=== PATIENT | male | born 1940 | race Caucasian/White ===

== ENCOUNTER → 2018-02-08 07:06 | Outpatient (CLI) | payer MEDICARE, OTHER, SELFPAY ==
[2018-02-08 07:26] LABS: Absolute Neutrophil Count 4.4 X10^3/uL (2.0-7.7); Basophil# 0.04 X10^3/uL; Basophil% 0.6 % (0-1); Eosinophils% 5.5 % (0-5); Hematocrit 45.5 % (40-54); Hemoglobin 14.7 g/dl (13.0-16.5); Mean Corp Hgb Conc 32.3 g/gl (32-36); Mean Corpuscular Hgb 31.3 pg (27.0-32.0); Mean Corpuscular Volume 96.8 fL (80-94); Mean Platelet Vol. 9.5 fl (6.2-12.0); Monocyte# 0.84 X10^3/uL; Monocyte% 11.6 % (0-10); Neutrophil # 4.36 X10^3/uL (2.7-7.7); Platelet Count 292 K/mm3 (150-450); RBC Distribution Width CV 13.7 % (11.6-14.6); RBC Distribution Width SD 47.3 fl (35.1-43.9); White Blood Count 7.3 K/mm3 (4.4-11.0)
[2018-02-08 07:28] LABS: POSITIVE COUNT NO; POSITIVE DIFFERENTIAL NO; POSITIVE MORPHOLOGY NO
[2018-02-08 08:02] LABS: ALB/GLOB Ratio 1.1 RATIO (0.9-2.4); AST(SGOT) 21 U/L (15-37); Alanine Aminotransfer ALT/SGPT 37 U/L (16-61); Albumin, Serum 3.9 g/dL (3.2-5.0); Alkaline Phosphatase 71 U/L (45-117); Anion Gap 7 (5-15); BUN 24 mg/dL (7-18); BUN/Creat Ratio 19.5 RATIO (10-20); Calcium,Total 9.4 mg/dL (8.5-10.1); Chloride 105 mmol/L (98-107); Cholesterol 139 mg/dL (200); Creatinine, Serum 1.23 mg/dL (0.70-1.30); EST Glomerular Filtration Rate 60 mL/min (>60); Est Glom Filt Rate - Afr Amer 73 mL/min (>60); Ferritin 156 ng/mL (26-388); Globulin 3.4 g/dL (2.2-4.2); Glucose 87 mg/dL (74-106); High Density Lipoprotein 52 mg/dL; PSA,Total- Diagnostic 4.49 ng/mL (0.0-4.0); Potassium 4.4 mmol/L (3.5-5.1); Protein, Total 7.3 g/dL (6.4-8.2); Sodium Level 145 mmol/L (136-145); Thyroid Stim Hormone (TSH) 6.02 uIU/mL (0.358-3.74); Triglycerides 91 mg/dL; Very Low Density Lipoprotein 18 mg/dL (5-40)
[2018-02-10 09:50] LABS: Vitamin B12 579 pg/mL (211-911); Vitamin D,25 Hydroxy 56.7 ng/mL (29.95-100.01)
== END ==
PROVIDERS: Family Provider Family Medicine; PCP Family Medicine; Visit Provider Family Medicine
DX: E78.00 Pure hypercholesterolemia, unspecified (principal); D53.1 Other megaloblastic anemias, not elsewhere classified; G62.9 Polyneuropathy, unspecified; N40.0 Benign prostatic hyperplasia without lower urinary tract symptoms
CPT/HCPCS: 80053; 80061; 82306; 82607; 82728; 82746; 84153; 84443; 85025

== ENCOUNTER → 2018-03-20 09:48 | Outpatient (CLI) | payer MEDICARE, OTHER, SELFPAY ==
[2018-03-20 12:02] LABS: PSA,Total- Diagnostic 4.66 ng/mL (0.0-4.0)
== END ==
PROVIDERS: Family Provider Family Medicine; PCP Family Medicine; Visit Provider Urology
DX: R97.20 Elevated prostate specific antigen [PSA] (principal)
CPT/HCPCS: 36415; 84153

== ENCOUNTER → 2018-04-10 08:18 | Outpatient (CLI) | payer MEDICARE, OTHER, SELFPAY ==
[2018-04-10 09:02] LABS: T4 Free Direct 0.73 ng/dL (0.76-1.46); Thyroid Stim Hormone (TSH) 2.99 uIU/mL (0.358-3.74)
== END ==
PROVIDERS: Family Provider Family Medicine; PCP Family Medicine; Visit Provider Family Medicine
DX: R94.6 Abnormal results of thyroid function studies (principal)
CPT/HCPCS: 36415; 84439; 84443

== ENCOUNTER → 2018-04-21 10:40 | Outpatient (CLI) | payer MEDICARE, OTHER, SELFPAY ==
--- NOTE | 2018-04-21 10:40 | DT_ITS ---
This patient was seen during an EMR downtime April 21, 2018 - April 28, 2018. This patient may have a combination of paper and electronic documentation or all paper documentation. All documentation is viewable within the e-chart portion of [facility] for each patient visit.
== END ==
PROVIDERS: Family Provider Family Medicine; PCP Family Medicine; Visit Provider Physician Assistant Surgical
DX: J02.9 Acute pharyngitis, unspecified (principal)
CPT/HCPCS: 87880

== ENCOUNTER → 2018-08-13 08:58 | Outpatient (CLI) | payer MEDICARE, OTHER, SELFPAY ==
--- NOTE | 2018-08-13 09:33 | CDU_ITS ---
Reason For Study: RETINAL VEIN OCCLUSION Rt. Velocities/BP Lt. Velocities/BP Prox CCA 126/28 cm/sec. Prox CCA 90/19 cm/sec. Mid CCA 96/21 cm/sec. Mid CCA 103/26 cm/sec. Dist CCA 79/22 cm/sec. Dist CCA 84/18 cm/sec. Prox ICA 55/16 cm/sec. Prox ICA 49/21 cm/sec. Mid ICA 42/15 cm/sec. Mid ICA 103/38 cm/sec. Dist ICA 89/31 cm/sec. Dist ICA 80/21 cm/sec. Rt. ICA/CCA = .92. Lt. ICA/CCA = 1.0. Prox ECA 69/9 cm/sec. Prox ECA 63/12 cm/sec. Rt. Vert. 43/17 cm/sec. Lt. Vert. 35/12 cm/sec. Right Extracranial There is homogeneous, smooth atherosclerotic plaque noted in the right common carotid artery. There is homogeneous, smooth atherosclerotic plaque noted in the right internal carotid artery. There is intimal thickening but no significant atherosclerotic plaque noted in the right external carotid artery. Antegrade flow is noted in the right vertebral artery. Left Extracranial There is homogeneous, smooth atherosclerotic plaque noted in the left common carotid artery. There is homogeneous, smooth atherosclerotic plaque noted in the left internal carotid artery. There is intimal thickening but no significant atherosclerotic plaque noted in the left external carotid artery. Antegrade flow is noted in the left vertebral artery. Procedure Carotid Duplex 11033. Exam performed in department. Interpretation Summary Mild (<50%) stenosis right extracranial internal carotid. Mild (<50%) stenosis left extracranial internal carotid. Flow within the vertebral arteries is antegrade bilaterally. Ordering Physician: Miquel Miller Referring Physician: Miquel Miller Performed By: Jackelin Simon, NINA, RVT
[2018-08-13 09:57] LABS: Cholesterol 146 mg/dL (200); High Density Lipoprotein 58 mg/dL; PSA,Total - Annual Screen 2.58 ng/mL (0.00-4.00); T4 Free Direct 0.87 ng/dL (0.76-1.46); Thyroid Stim Hormone (TSH) 2.51 uIU/mL (0.358-3.74); Triglycerides 119 mg/dL; Very Low Density Lipoprotein 24 mg/dL (5-40)
== END ==
PROVIDERS: Family Provider Family Medicine; PCP Family Medicine; Referring Provider Family Medicine; Visit Provider Family Medicine
DX: E78.00 Pure hypercholesterolemia, unspecified (principal); R79.89 Other specified abnormal findings of blood chemistry; N40.0 Benign prostatic hyperplasia without lower urinary tract symptoms; H34.8312 Tributary (branch) retinal vein occlusion, right eye, stable; H34.8392 Tributary (branch) retinal vein occlusion, unspecified eye, stable; Z12.5 Encounter for screening for malignant neoplasm of prostate
CPT/HCPCS: 36415; 80061; 84153; 84439; 84443; 93880; G0103

== ENCOUNTER → 2018-09-24 08:00 | Outpatient (CLI) | payer MEDICARE, OTHER, SELFPAY ==
[2018-09-24 08:21] LABS: Absolute Lymphocyte Count 1.68 X10^3/ul (0.83-4.51); Absolute Neutrophil Count 4.7 X10^3/uL (2.0-7.7); Basophil# 0.06 X10^3/uL; Basophil% 0.8 % (0-1); Eosinophil# 0.45 X10^3/uL; Eosinophils% 5.8 % (0-5); Hematocrit 42.5 % (40-54); Hemoglobin 13.5 g/dl (13.0-16.5); Lymphocyte # 1.68 X10^3/ul (4.0); Lymphocyte % 21.6 % (19-41); Mean Corp Hgb Conc 31.8 g/gl (32-36); Mean Corpuscular Hgb 30.8 pg (27.0-32.0); Mean Corpuscular Volume 96.8 fL (80-94); Mean Platelet Vol. 9.4 fl (6.2-12.0); Monocyte# 0.91 X10^3/uL; Monocyte% 11.7 % (0-10); Neutrophil # 4.66 X10^3/uL (2.7-7.7); Neutrophil % 59.8 % (47-70); Platelet Count 321 K/mm3 (150-450); RBC Distribution Width CV 13.5 % (11.6-14.6); RBC Distribution Width SD 46.8 fl (35.1-43.9); Red Blood Count 4.39 M/mm3 (4.6-6.2); White Blood Count 7.8 K/mm3 (4.4-11.0)
[2018-09-24 08:32] LABS: POSITIVE COUNT NO; POSITIVE DIFFERENTIAL NO; POSITIVE MORPHOLOGY NO
[2018-09-24 09:03] LABS: Vitamin B12 385 pg/mL (211-911)
== END ==
PROVIDERS: Family Provider Family Medicine; PCP Family Medicine; Referring Provider Family Medicine; Visit Provider Family Medicine
DX: D53.1 Other megaloblastic anemias, not elsewhere classified (principal)
CPT/HCPCS: 36415; 82607; 82746; 85025

== ENCOUNTER → 2018-11-27 12:19 | Outpatient (CLI) | payer MEDICARE, OTHER, SELFPAY ==
[2018-11-27 12:48] LABS: Absolute Lymphocyte Count 1.34 X10^3/ul (0.83-4.51); Absolute Neutrophil Count 4.9 X10^3/uL (2.0-7.7); Basophil# 0.02 X10^3/uL; Basophil% 0.3 % (0-1); Eosinophil# 0.09 X10^3/uL; Eosinophils% 1.3 % (0-5); Hematocrit 46.1 % (40-54); Hemoglobin 14.4 g/dl (13.0-16.5); Lymphocyte # 1.34 X10^3/ul (4.0); Lymphocyte % 18.9 % (19-41); Mean Corp Hgb Conc 31.2 g/gl (32-36); Mean Corpuscular Hgb 30.2 pg (27.0-32.0); Mean Corpuscular Volume 96.6 fL (80-94); Mean Platelet Vol. 9.2 fl (6.2-12.0); Monocyte# 0.78 X10^3/uL; Neutrophil # 4.85 X10^3/uL (2.7-7.7); Neutrophil % 68.4 % (47-70); Platelet Count 270 K/mm3 (150-450); RBC Distribution Width CV 14.3 % (11.6-14.6); RBC Distribution Width SD 50.5 fl (35.1-43.9); Red Blood Count 4.77 M/mm3 (4.6-6.2); White Blood Count 7.1 K/mm3 (4.4-11.0)
[2018-11-27 12:53] LABS: POSITIVE COUNT NO; POSITIVE DIFFERENTIAL NO; POSITIVE MORPHOLOGY NO
[2018-11-27 13:17] LABS: Erythrocyte Sedimentation Rate < 1 mm/hr (0-20)
[2018-11-27 13:20] LABS: BUN 26 mg/dL (7-18); Creatinine, Serum 1.18 mg/dL (0.70-1.30); EST Glomerular Filtration Rate 63 mL/min (>60); Glucose 92 mg/dL (74-106)
[2018-11-27 13:21] LABS: ALB/GLOB Ratio 1.3 RATIO (0.9-2.4); AST(SGOT) 23 U/L (15-37); Alanine Aminotransfer ALT/SGPT 40 U/L (16-61); Albumin, Serum 4.2 g/dL (3.2-5.0); Alkaline Phosphatase 69 U/L (45-117); Anion Gap 10 (5-15); CRP < 2.90 mg/L (0.0-3.0); Calcium,Total 8.9 mg/dL (8.5-10.1); Chloride 102 mmol/L (98-107); Est Glom Filt Rate - Afr Amer 77 mL/min (>60); Globulin 3.2 g/dL (2.2-4.2); Potassium 4.4 mmol/L (3.5-5.1); Protein, Total 7.4 g/dL (6.4-8.2); Sodium Level 142 mmol/L (136-145)
== END ==
PROVIDERS: Family Provider Family Medicine; PCP Family Medicine; Referring Provider Family Medicine; Visit Provider Family Medicine
DX: K57.32 Diverticulitis of large intestine without perforation or abscess without bleeding (principal)
CPT/HCPCS: 36415; 80053; 85025; 85652; 86140; 87506

== ENCOUNTER → 2018-12-10 12:08 | Outpatient (CLI) | payer MEDICARE, OTHER, SELFPAY ==
[2018-12-10 13:16] LABS: ALB/GLOB Ratio 1.3 RATIO (0.9-2.4); AST(SGOT) 20 U/L (15-37); Alanine Aminotransfer ALT/SGPT 36 U/L (16-61); Albumin, Serum 4.1 g/dL (3.2-5.0); Alkaline Phosphatase 63 U/L (45-117); Anion Gap 9 (5-15); BUN 21 mg/dL (7-18); BUN/Creat Ratio 19.3 RATIO (10-20); CRP < 2.90 mg/L (0.0-3.0); Chloride 106 mmol/L (98-107); Creatinine, Serum 1.09 mg/dL (0.70-1.30); EST Glomerular Filtration Rate 69 mL/min (>60); Est Glom Filt Rate - Afr Amer 84 mL/min (>60); Globulin 3.1 g/dL (2.2-4.2); Glucose 90 mg/dL (74-106); Lipase 212 U/L (73-393); Protein, Total 7.2 g/dL (6.4-8.2); Sodium Level 142 mmol/L (136-145)
--- OUTSIDE RECORDS SUMMARY | 2019-02-11 10:29 | XMS RPT_ITS ---
:1940 Author Organization OHIP Support Name Relationship Address Phone KEVINRITA AvilesBIE Unavailable [address] + [place] [address] R Unavailable Unavailable Unavailable KEVIN, RAFI Unavailable [address] + [place] [address] R Unavailable Unavailable Unavailable KEVIN, RAFI Unavailable [address] + [place] [address] R Unavailable Unavailable Unavailable KEVIN, RAFI Unavailable [address] + [place] [address] R Unavailable Unavailable Unavailable KEVIN, RAFI Unavailable [address] + [place] [address] R Unavailable Unavailable Unavailable KEVIN, RAFI Unavailable [address] + [place] [address] R Unavailable Unavailable Unavailable KEVIN, RAFI Unavailable [address] + [place] [address] R Unavailable Unavailable Unavailable KEVIN, RAFI Unavailable [address] + [place] [address] R Unavailable Unavailable Unavailable KEVIN, RAFI Unavailable [address] + [place] [address] R Unavailable Unavailable Unavailable KEVIN, RAFI Unavailable [address] [phone] [place] [address] R Unavailable Unavailable Unavailable KEVIN, RAFI Unavailable [address] [phone] [place] [address] R Unavailable Unavailable Unavailable RAFI POWERS Unavailable [address] [facility] [phone] [place] [address] R Unavailable Unavailable Unavailable Care Team Providers Name Role Phone Miller, Miquel Attending Unavailable Miller, Miquel Referring Unavailable Miller, Miquel Primary Care Unavailable Miller, Miquel Attending Unavailable Miller, Miquel Referring Unavailable Miller, Miquel Primary Care Unavailable Miller, Miquel Attending Unavailable Miller, Miquel Primary Care Unavailable OsorioGustavo parsons Attending Unavailable OsorioGustavo parsons Referring Unavailable Miller, Miquel Primary Care Unavailable Miller, Miquel Attending Unavailable Miller, Miquel Referring Unavailable Miller, Miquel Primary Care Unavailable Miller, Miquel Attending Unavailable Miller, Miquel Referring Unavailable Miller, Miquel Primary Care Unavailable Ludin Beck Attending Unavailable Miller, Miquel Primary Care Unavailable Ludin Beck Attending Unavailable Miller, Miquel Referring Unavailable Miller, Miquel Primary Care Unavailable Buffy Dial Attending Unavailable Miller, Miquel Referring Unavailable Miller, Miquel Primary Care Unavailable Miller, Miquel Attending Unavailable Miller, Miquel Referring Unavailable Miller, Miquel Primary Care Unavailable Miller, Miquel Attending Unavailable Miller, Miquel Referring Unavailable Miller, Miquel Primary Care Unavailable Buffy Dial Attending Unavailable Miller, Miquel Referring Unavailable PROBLEMS PROBLEMS DATE TYPE CONDITION / CODE ATTENDING STATUS SOURCE 12/12/2018 Unknown R19.7 - Diarrhea, Miquel Miller Active [place] unspecified / Community R19.7(ICD-10) Hospital Repository 11/27/2018 Unknown K57.32 - Miquel Miller Active [place] Diverticulitis of [facility] large intestine Hospital without perforation Repository or abscess without bleeding / K57.32(ICD-10) 10/13/2018 Unknown M19.012 - Primary [place], Active [facility] oste[facility], [facility] shoulder / Hospital M19.012(ICD-10) Repository 09/24/2018 Unknown 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, 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 LAB L501.1000 7-18 mg/dL High BUN 21 LAB L501.1100 0.70-1.30 mg/dL Normal CREAT,SERUM 1.09 Result Comment: The validity of the calculated GFR AND GFRAA in patients over 70 years has not been determined. Clinical correlation is essential. LAB L501.1110 >60 mL/min Normal EST GFR 69 Result Comment: Non- GFR Calc LAB L501.1115 >60 mL/min Normal EST GFR - AA 84 Result Comment: GFR Calc LAB L501.1300 10-20 RATIO Normal BUN/CRE 19.3 LAB L501.1500 6.4-8.2 g/dL T Normal PROT 7.2 LAB L501.1800 3.2-5.0 g/dL Normal ALB 4.1 LAB L501.1950 2.2-4.2 g/dL Normal GLOB 3.1 LAB L501.2000 0.9-2.4 RATIO Normal A/G 1.3 LAB L501.2200 8.5-10.1 mg/dL CA Normal 9.0 LAB L501.4100 15-37 U/L Normal AST 20 LAB L501.4305 45-117 U/L Normal ALK P 63 LAB L501.4405 16-61 U/L Normal ALT 36 LAB L501.4600 0.20-1.00 mg/dL High T BILI 1.30 LAB L501.5300 136-145 mmol/L NA Normal 142 LAB L501.5600 3.5-5.1 mmol/L K Normal 4.0 LAB L501.5900 98-107 mmol/L CL Normal 106 LAB L501.6100 21.0-32.0 mmol/L Normal CO2 27.0 LAB L501.6200 5-15 Normal GAP 9 Performed By: #### L500.4050, L501.2450, L501.6710 #### [facility] [address] [place], [place], [address] LIPASE Collected: 12/10/2018 Status: F Source: [place] 12:13 PM [facility] REPOSITORY TYPE CODE TESTS RESULT OUT OF RANGE REFERENCE UNITS LAB L501.2450 73-393 U/L Normal LIPASE 212 Performed By: #### L500.4050, L501.2450, L501.6710 #### [facility] [address] [place], [place], [address] CRP Collected: 12/10/2018 Status: F Source: [place] 12:13 PM [facility] REPOSITORY TYPE CODE TESTS RESULT OUT OF RANGE REFERENCE UNITS LAB L501.6710 0.0-3.0 mg/L Normal < 2.90 C-REACTIVE PROT Result Comment: C-Reactive Protein (CRP) provides useful information for the diagnosis, therapy and monitoring of inflammatory processes and associated diseases. For the evaluation of Relative Risk for Cardiovascular Disease, a High Sensitivity CRP (HSCRP) should be ordered. Performed By: #### L500.4050, L501.2450, L501.6710 #### [facility] [address] [place], [place], [address] MISCELLANEOUS LAB Collected: 12/10/2018 Status: F Source: [place] PROCEDURE 12:13 PM [facility] REPOSITORY Order Comment: Test(s) Ordered: [id number] GIARD/CRYPTO STOOL TYPE CODE TESTS RESULT OUT OF RANGE REFERENCE UNITS LAB L801.1541 Normal [facility] TEST Result Comment: TEST RESULT UNITS REF INTERVAL GIARDIA/CRYPTOSPORIDIUM EIA Giardis lamblia Ag, EIA Neagative Negative Cryptosporidium EIA Negative Negative TESTING PERFORMED AT [facility]. ORIGINAL REPORT ON FILE IN LAB CONTAINS ADDITIONAL TEST SITE INFORMATION. Performed By: #### L801.1541 #### [facility] [address] [place], [address] Observed: 12/10/2018 Status: F Source: [place] OVA AND PARASITES 12:13 PM [facility] REPOSITORY O + P OVA AND PARASITES EXAM, ROUTINE These results were obtained using wet preparation(s) and trichrome stained smear. This test does not include testing for Crytosporidium parvum, Cyclospora, or Microsporidia. One negative specimen does not rule out the possibility of a parasitic infection. TESTING PERFORMED AT [facility]. ORIGINAL REPORT ON FILE IN LAB CONTAINS ADDITIONAL TEST SITE INFORMATION. Ova/Parasite Exam NO OVA, CYSTS, OR PARASITES FOUND. Performed By: #### M600.5000 #### [facility] [place], [address] CBC W/DIFF, AUTOMATED Collected: 11/27/2018 Status: F Source: [place] 12:26 PM [facility] REPOSITORY TYPE CODE TESTS RESULT OUT OF RANGE REFERENCE UNITS LAB L100.1000 4.4-11.0 K/mm3 Normal WBC 7.1 LAB L100.1200 4.6-6.2 M/mm3 Normal RBC 4.77 LAB L100.1300 13.0-16.5 g/dl Normal HGB 14.4 LAB L100.1400 40-54 % Normal HCT 46.1 LAB L100.1500 80-94 fL High MCV 96.6 LAB L100.1600 27.0-32.0 pg Normal MCH 30.2 LAB L100.1700 32-36 g/gl Low MCHC 31.2 LAB L100.1810 11.6-14.6 % Normal RDW CV 14.3 LAB L100.1820 35.1-43.9 fl High RDW SD 50.5 LAB L100.1900 150-450 K/mm3 Normal PLT 270 LAB L100.2000 6.2-12.0 fl Normal MPV 9.2 LAB L100.2100 47-70 % Normal NEUT% 68.4 LAB L100.2200 19-41 % Low LY% 18.9 LAB L100.2300 0-10 % High MONO% 11.0 LAB L100.2400 0-5 % Normal EO% 1.3 LAB L100.2500 0-1 % Normal BASO% 0.3 LAB L100.2550 0.0-0.9 % Normal IM GRAN % 0.100 Result Comment: IG% - Immature Granulocytes (promyelocytes, myelocytes and metamyelocytes) > 1% indicates that a LEFT SHIFT is Present. LAB L100.2620 2.0-7.7 X10 3/uL Normal Absolute Neut 4.9 LAB L100.2720 0.83-4.51 X10 3/ul Normal Absolute Lymph 1.34 Performed By: #### L100.0100, L101.9900 #### [facility] [address] [place], [place], [address] ERYTHROCYTE SED RATE Collected: 11/27/2018 Status: F Source: [place] 12:26 PM [facility] REPOSITORY TYPE CODE TESTS RESULT OUT OF RANGE REFERENCE UNITS LAB L102.0000 0-20 mm/hr Normal SED RATE < 1 Performed By: #### L100.0100, L101.9900 #### [facility] [address] [place], [place], [address] COMPREHENSIVE METABOLIC Collected: 11/27/2018 Status: F Source: [facility] 12:26 PM [facility] REPOSITORY TYPE CODE TESTS RESULT OUT OF RANGE REFERENCE UNITS LAB L501.0100 74-106 mg/dL Normal GLU 92 Result Comment: Please note revised GLUCOSE reference range effective 2017. LAB L501.1000 7-18 mg/dL High BUN 26 LAB L501.1100 0.70-1.30 mg/dL Normal CREAT,SERUM 1.18 Result Comment: The validity of the calculated GFR AND GFRAA in patients over 70 years has not been determined. Clinical correlation is essential. LAB L501.1110 >60 mL/min Normal EST GFR 63 Result Comment: Non- GFR Calc LAB L501.1115 >60 mL/min Normal EST GFR - AA 77 Result Comment: GFR Calc LAB L501.1300 10-20 RATIO High BUN/CRE 22.0 LAB L501.1500 6.4-8.2 g/dL T Normal PROT 7.4 LAB L501.1800 3.2-5.0 g/dL Normal ALB 4.2 LAB L501.1950 2.2-4.2 g/dL Normal GLOB 3.2 LAB L501.2000 0.9-2.4 RATIO Normal A/G 1.3 LAB L501.2200 8.5-10.1 mg/dL CA Normal 8.9 LAB L501.4100 15-37 U/L Normal AST 23 LAB L501.4305 45-117 U/L Normal ALK P 69 LAB L501.4405 16-61 U/L Normal ALT 40 LAB L501.4600 0.20-1.00 mg/dL High T BILI 1.40 LAB L501.5300 136-145 mmol/L NA Normal 142 LAB L501.5600 3.5-5.1 mmol/L K Normal 4.4 LAB L501.5900 98-107 mmol/L CL Normal 102 LAB L501.6100 21.0-32.0 mmol/L Normal CO2 30.0 LAB L501.6200 5-15 Normal GAP 10 Performed By: #### L500.4050, L501.6710 #### [facility] [address] [facility]. [place], [place], [address] CRP Collected: 11/27/2018 Status: F Source: [place] 12:26 PM [facility] REPOSITORY TYPE CODE TESTS RESULT OUT OF RANGE REFERENCE UNITS LAB L501.6710 0.0-3.0 mg/L Normal < 2.90 C-REACTIVE PROT Result Comment: C-Reactive Protein (CRP) provides useful information for the diagnosis, therapy and monitoring of inflammatory processes and associated diseases. For the evaluation of Relative Risk for Cardiovascular Disease, a High Sensitivity CRP (HSCRP) should be ordered. Performed By: #### L500.4050, L501.6710 #### [facility] [address] [place], [address] Observed: 11/27/2018 Status: F Source: [place] ENTERIC PATHOGEN 12:00 AM [facility] PANEL STOOL REPOSITORY PANEL STOOL Normal Reference Range = Not Detected Not detected for Campylobacter group, Salmonella species, Shigella species, Vibrio Group, Yersinia enterocolitica, EHEC (Shiga Toxin 1, Shiga Toxin 2), Norovirus Gl/Gll, and Rotavirus A. Other common stool pathogens are not detected on this panel include: Aeromonas/Plesiomonas or parasites. Order testing for these organisms separately if suspected. This is an amplified DNA test which makes it both specific and sensitive. CAMPYLOBACTER Not Detected Salmonella Not Detected Shigella sp. Not Detected Shiga Toxin Not Detected Yersinia Not Detected VIBRIO Not Detected Norovirus Not Detected Rotavirus Not Detected Performed By: #### M100.637 #### [facility] [address] [place], [address] ORTHOPEDIC VISIT Observed: 10/23/2018 Status: F Source: [place] RE[place] 4:35 PM [facility] HOSPITAL REPOSITORY [facility] [address] [place] [address] 5 [place] [address] OFFICE VISIT Date of Service: 10/13/18 MR#: [id number] Acct: [id number] Name: LEA POWERS JR Rep #: [id number] : 1940 Provider: Buffy Dial DO Age/Sex: 77/M [place] [facility] [place] [place] Status: Signed Intake Intake Visit Reasons: LEFT SHOULDER Is patient in pain?: Yes Allergies acetaminophen [From Percocet] Adverse Reaction (Verified 10/13/18 09:12) Nausea brimonidine Adverse Reaction (Verified 10/13/18 09:12) Swelling oxycodone HCl [From Percocet] Adverse Reaction (Verified 10/13/18 09:12) Nausea ZALATAN Adverse Reaction (Uncoded 12/02/14 09:12) Swelling Medications Amitriptyline HCl [Elavil] 25 mg PO QHS 12/02/14 [History Confirmed 06/12/18] Aspirin [Aspirin, Baby] 81 mg PO DAILY@0800 12/02/14 [History Confirmed 06/12/18] Calcium Carb/Vitamin D [Caltrate-600 With Vit D Tab] 1 tab PO DAILY@0800 12/02/14 [History Confirmed 06/12/18] Cyanocobalamin [Vitamin B12] 500 mcg IM Q30D 12/02/14 [History Confirmed 06/12/18] Donepezil HCl [Aricept Odt] 10 mg PO DAILY 12/02/14 [History Confirmed 06/12/18] Echinacea 750 mg PO DAILY 12/02/14 [History Confirmed 06/12/18] Ferrous Sulfate [Iron Supplement] 65 mg PO DAILY 12/02/14 [History Confirmed 06/12/18] Finasteride [Proscar] 5 mg PO DAILY 12/02/14 [History Confirmed 06/12/18] Multivitamins,Therapeutic [Multivitamin] 1 tab PO DAILY 12/02/14 [History Confirmed 06/12/18] [place]-3S/Dha/Epa/Fish Oil/D3 [Fish Mvq-Biazb-2-Vit D Softgel] 1 ea PO DAILY 12/02/14 [History Confirmed 06/12/18] Polyethylene Glycol 3350 [Miralax] 17 gm PO DAILY 12/02/14 [History Confirmed 06/12/18] Timolol 0.5% [Timoptic] 1 drp EACH EYE BID 12/02/14 [History Confirmed 06/12/18] Travoprost 0.004% [Travatan 0.004% Eye Drop] 1 drp EACH EYE DAILY 12/02/14 [History Confirmed 06/12/18] Venlafaxine XR [Effexor Xr] 75 mg PO DAILY 12/02/14 [History Confirmed 06/12/18] Phenazopyridine HCl [Pyridium] 200 mg PO TID PRN #20 tab 12/09/14 [Rx Confirmed 06/12/18] Smz/Tmp Ds [Bactrim Ds] 1 tab PO BID #14 tab 12/09/14 [Rx Confirmed 06/12/18] gabapentin 600 mg tablet 600 mg PO BID 06/12/18 [History Confirmed 06/12/18] PFSH Social History Smoking Status: Current some day smoker HPI LEFT SHOULDER: Details: LEA POWERS JR is a 77 year old M here today for left shoulder pain. Patient notes that he has increased pain in the evening while he is sleeping. His pain is over his lateral and posterior shoulder. Patient has good range of motion. He denies any weakness. Patient had an injection on 06/12/18 which was helpful until about a month ago. He has a home exercise program which he has not been doing recently. Patient would like to discuss options today. ROS Const Reports system reviewed and no additional complaints, except as docu Eyes Reports system reviewed and no additional complaints, except as docu ENT Reports system reviewed and no additional complaints, except as docu Card Reports system reviewed and no additional complaints, except as docu Resp Reports system reviewed and no additional complaints, except as docu GI Reports system reviewed and no additional complaints, except as docu Reports system reviewed and no additional complaints, except as docu Musc Reports joint pain Skin/Breast Reports system reviewed and no additional complaints, except as docu Neuro Yes system reviewed and no additional complaints, except as docu Psych Reports system reviewed and no additional complaints, except as docu Endo Reports system reviewed and no additional complaints, except as docu Ortho Exam Left Shoulder Skin/Wound: Yes CDI Contralateral Normal: Yes Testing: Yes Hawkin's, Yes Neer's, Yes AROM-Forward Elevation 0-180, Yes AROM-External Rotation at side 0-60 Internal Rotation: Buttock SHOULDER: crepitus with rom Office Procedures Ortho Injections Injections Yes Subacromial Injection Left Details: Obtained consent for injection. Under sterile conditions, injected the patients left subacromial injection with a 10cc cocktail of 8cc bupivacaine and 2cc kenalog. The patient tolerated the injection well without any noted complication. Patient should call our office if redness develops, pain worsens or if they have any concerns. Office Meds Kenalog Performing Provider: Buffy Dial DO Administered by: Buffy Dial DO on 10/13/18 09:32 Dose Route Admin Location Lot Number Expiration DateNDC [employer] 80 mg Intra-Articularleft [id number] 10/18/19 [id number] [facility] [employer] Assessment AND Plan 1. Osteoarthritis of left shoulder, unspecified osteoarthritis type M19.012 Plan discussed treatment options with patient, patient elected to proceed with injection as has given consrevative treatment and exercises a go and is still having some aching at end range of motion. Continued conservative care, patient understands the risks and benefits and elects to proceed with injections. Follow up in 3-4 months or sooner if pain, swelling, numbness or associated symptoms, or concerns develop. All questions answered. Patient in agreement of plan. Orders Orders: Medications Discontinued: Kenalog Discontinued Reason: Office Medic80 mg (2 mL) Intra-Articular ONCE 2 mL 0RF NS ation has been Documented as given 2. 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) 10/23/18 1635 <Electronically signed by Buffy Dial DO> Date Buffy Dial DO Cosigner Signature: Date (if applicable) CC: CBC W/DIFF, AUTOMATED Collected: 09/24/2018 Status: F Source: [place] 6:40 AM [facility] REPOSITORY TYPE CODE TESTS RESULT OUT OF RANGE REFERENCE UNITS LAB L100.1000 4.4-11.0 K/mm3 Normal WBC 7.8 LAB L100.1200 4.6-6.2 M/mm3 Low RBC 4.39 LAB L100.1300 13.0-16.5 g/dl Normal HGB 13.5 LAB L100.1400 40-54 % Normal HCT 42.5 LAB L100.1500 80-94 fL High MCV 96.8 LAB L100.1600 27.0-32.0 pg Normal MCH 30.8 LAB L100.1700 32-36 g/gl Low MCHC 31.8 LAB L100.1810 11.6-14.6 % Normal RDW CV 13.5 LAB L100.1820 35.1-43.9 fl High RDW SD 46.8 LAB L100.1900 150-450 K/mm3 Normal PLT 321 LAB L100.2000 6.2-12.0 fl Normal MPV 9.4 LAB L100.2100 47-70 % Normal NEUT% 59.8 LAB L100.2200 19-41 % Normal LY% 21.6 LAB L100.2300 0-10 % High MONO% 11.7 LAB L100.2400 0-5 % High EO% 5.8 LAB L100.2500 0-1 % Normal BASO% 0.8 LAB L100.2550 0.0-0.9 % Normal IM GRAN % 0.300 Result Comment: IG% - Immature Granulocytes (promyelocytes, myelocytes and metamyelocytes) > 1% indicates that a LEFT SHIFT is Present. LAB L100.2620 2.0-7.7 X10 3/uL Normal Absolute Neut 4.7 LAB L100.2720 0.83-4.51 X10 3/ul Normal Absolute Lymph 1.68 Performed By: #### L100.0100 #### [facility] [address] [facility] [place], [address] VITAMIN B12 Collected: 09/24/2018 Status: F Source: [place] 6:40 AM [facility] REPOSITORY TYPE CODE TESTS RESULT OUT OF RANGE REFERENCE UNITS LAB L503.0105 211-911 pg/mL Normal Vitamin B12 385 Performed By: #### L503.0105 #### [facility] [address] [facility] [place], [address] FOLATES, (FOLIC ACID) Collected: 09/24/2018 Status: F Source: [place] 6:40 AM [facility] REPOSITORY Order Comment: Is Patient Taking Vitamins or Folic Acid Supplements? N TYPE CODE TESTS RESULT OUT OF RANGE REFERENCE UNITS LAB L506.0250 3.1-55.4 ng/mL Normal FOLATES 25.40 Performed By: #### L506.0250 #### [facility] [address] [facility] [place], [address] CAROTID DUPLEX Observed: 08/13/2018 Status: F Source: [place] ULTRASOUND 12:02 PM [facility] REPOSITORY [facility] Cardiovascular Services [address] [place] [address] [place] [address] Carotid Duplex Ultrasound 08/13/18 0951 MR#: [id number] Acct: [id number] Name: LEA POWERS JR Rep #: [id number] : 1940 77 From: Jorge Alberto Ramos MD Attending Dr: Miquel Miller MD Status: REG CLI Ordering Dr: Miquel Miller MD Date: 08/13/18 Location: [facility] Sex: M C Admitted: Reason For Study: RETINAL VEIN OCCLUSION Rt. Velocities/BP Lt. Velocities/BP Prox CCA 126/28 cm/sec. Prox CCA 90/19 cm/sec. Mid CCA 96/21 cm/sec. Mid CCA 103/26 cm/sec. Dist CCA 79/22 cm/sec. Dist CCA 84/18 cm/sec. Prox ICA 55/16 cm/sec. Prox ICA 49/21 cm/sec. Mid ICA 42/15 cm/sec. Mid ICA 103/38 cm/sec. Dist ICA 89/31 cm/sec. Dist ICA 80/21 cm/sec. Rt. ICA/CCA = .92. Lt. ICA/CCA = 1.0. Prox ECA 69/9 cm/sec. Prox ECA 63/12 cm/sec. Rt. Vert. 43/17 cm/sec. Lt. Vert. 35/12 cm/sec. Right Extracranial There is homogeneous, smooth atherosclerotic plaque noted in the right common carotid artery. There is homogeneous, smooth atherosclerotic plaque noted in the right internal carotid artery. There is intimal thickening but no significant atherosclerotic plaque noted in the right external carotid artery. Antegrade flow is noted in the right vertebral artery. Left Extracranial There is homogeneous, smooth atherosclerotic plaque noted in the left common carotid artery. There is homogeneous, smooth atherosclerotic plaque noted in the left internal carotid artery. There is intimal thickening but no significant atherosclerotic plaque noted in the left external carotid artery. Antegrade flow is noted in the left vertebral artery. Procedure Carotid Duplex [id number]. Exam performed in department. Interpretation Summary Mild (<50%) stenosis right extracranial internal carotid. Mild (<50%) stenosis left extracranial internal carotid. Flow within the vertebral arteries is antegrade bilaterally. Ordering Physician: Miquel Miller Referring Physician: Miquel Miller Performed By: Jackelin Simon, RDCS, RVT 08/13/18 1202 Date Jorge Alberto Ramos MD CC: Miquel Miller MD Date Dictated: 08/13/18950 Date Transcribed: 08/13/181201 [employer] Pcb Draftsman: Signed LIPID PROFILE Collected: 08/13/2018 Status: F Source: [place] 9:02 AM [facility] REPOSITORY Order Comment: Order Date: 08/04/18 Order Info: [id number] - LIPID Order Info: [id number] - TSH Order Info: [id number] - PSA Comments: Please send copy to Dr. Ac Order Info: [id number] - T4F TYPE CODE TESTS RESULT OUT OF RANGE REFERENCE UNITS LAB L501.4900 200 mg/dL Normal CHOL 146 Result Comment: <200 mg/dL Desirable 200-240 mg/dL Borderline >240 mg/dL High Risk LAB L501.5000 mg/dL Normal TRIG 119 Result Comment: The drugs N-Acetylcysteine and Metamizole may falsely depress this assay. Serum Triglycerides Reference Interval Normal <150 mg/dL Borderline high 150 - 199 mg/dL High 200 - 499 mg/dL Very High > or = 500 mg/dL LAB L501.6400 mg/dL Normal HDL 58 Result Comment: The drugs N-Acetylcysteine and Metamizole may falsely depress this assay. Reference Range HDL <40 mg/dL Low HDL Cholesterol HDL >or= 60 mg/dL High HDL Cholesterol LAB L501.6500 0-130 mg/dL Normal LDL 64 LAB L501.6600 5-40 mg/dL Normal VLDL 24 Performed By: #### L500.4100, L501.9520, L501.9910, L506.0400 #### [facility] [address] [place], [address] THYROID STIM HORMONE Collected: 08/13/2018 Status: F Source: [place] (TSH) 9:02 AM [facility] REPOSITORY Order Comment: Order Date: 08/04/18 Order Info: [id number] - LIPID Order Info: [id number] - TSH Order Info: [id number] - PSA Comments: Please send copy to Dr. Ac Order Info: [id number] - T4F TYPE CODE TESTS RESULT OUT OF RANGE REFERENCE UNITS LAB L501.9520 0.358-3.74 uIU/mL Normal TSH 2.51 Performed By: #### L500.4100, L501.9520, L501.9910, L506.0400 #### [facility] [address] [place], [address] PSA,TOTAL - ANNUAL Collected: 08/13/2018 Status: F Source: [place] SCREEN 9:02 AM [facility] REPOSITORY Order Comment: Order Date: 08/04/18 Order Info: [id number] - LIPID Order Info: [id number] - TSH Order Info: 2857-1 - PSA Comments: Please send copy to Dr. Ac Order Info: 3024-7 - T4F TYPE CODE TESTS RESULT OUT OF RANGE REFERENCE UNITS LAB L501.9910 0.00-4.00 ng/mL Normal PSA,TOT 2.58 SCREEN Result Comment: This test was performed using the TPSA assay method for the [employer] chemistry system. Values obtained with different assay methods cannot be used interchangably. When changing PSA assays in the course of monitoring a patient, additional sequential testing should be carried out to confirm baseline values. Performed By: #### L500.4100, L501.9520, L501.9910, L506.0400 #### [facility] [address] [place], [address] T4 FREE DIRECT Collected: 08/13/2018 Status: F Source: [place] 9:02 AM [facility] REPOSITORY Order Comment: Order Date: 08/04/18 Order Info: [id number] - LIPID Order Info: [id number] - TSH Order Info: 2857-1 - PSA Comments: Please send copy to Dr. Ac Order Info: 3024-7 - T4F TYPE CODE TESTS RESULT OUT OF RANGE REFERENCE UNITS LAB L506.0400 0.76-1.46 ng/dL Normal T4 FREE 0.87 DIRECT Performed By: #### L500.4100, L501.9520, L501.9910, L506.0400 #### [facility] [address] [place], [address] ORTHOPEDIC VISIT Observed: 06/12/2018 Status: F Source: [place] REPORT 11:00 AM [facility] REPOSITORY [facility] [address] [place] [address] [address] [place] [address] OFFICE VISIT Date of Service: 06/12/18 MR#: [id number] Acct: [id number] Name: KEVIN LEA VITALE Rep #: [id number] : 1940 Provider: Buffy Dial DO Age/Sex: 77/M [place] [facility] [place] [place] Status: Signed Intake Intake Visit Reasons: LEFT SHOULDER PAIN Allergies acetaminophen [From Percocet] Adverse Reaction (Verified 12/02/14 09:12) Nausea brimonidine Adverse Reaction (Verified 12/02/14 09:12) Swelling oxycodone HCl [From Percocet] Adverse Reaction (Verified 12/02/14 09:12) Nausea ZALATAN Adverse Reaction (Uncoded 12/02/14 09:12) Swelling Medications Amitriptyline HCl [Elavil] 25 mg PO QHS 12/02/14 [History Confirmed 06/12/18] Aspirin [Aspirin, Baby] 81 mg PO DAILY@0800 12/02/14 [History Confirmed 06/12/18] Calcium Carb/Vitamin D [Caltrate-600 With Vit D Tab] 1 tab PO DAILY@0800 12/02/14 [History Confirmed 06/12/18] Cyanocobalamin [Vitamin B12] 500 mcg IM Q30D 12/02/14 [History Confirmed 06/12/18] Donepezil HCl [Aricept Odt] 10 mg PO DAILY 12/02/14 [History Confirmed 06/12/18] Echinacea 750 mg PO DAILY 12/02/14 [History Confirmed 06/12/18] Ferrous Sulfate [Iron Supplement] 65 mg PO DAILY 12/02/14 [History Confirmed 06/12/18] Finasteride [Proscar] 5 mg PO DAILY 12/02/14 [History Confirmed 06/12/18] Multivitamins,Therapeutic [Multivitamin] 1 tab PO DAILY 12/02/14 [History Confirmed 06/12/18] [place]-3S/Dha/Epa/Fish Oil/D3 [Fish Jao-Tasbg-6-Vit D Softgel] 1 ea PO DAILY 12/02/14 [History Confirmed 06/12/18] Polyethylene Glycol 3350 [Miralax] 17 gm PO DAILY 12/02/14 [History Confirmed 06/12/18] Timolol 0.5% [Timoptic] 1 drp EACH EYE BID 12/02/14 [History Confirmed 06/12/18] Travoprost 0.004% [Travatan 0.004% Eye Drop] 1 drp EACH EYE DAILY 12/02/14 [History Confirmed 06/12/18] Venlafaxine XR [Effexor Xr] 75 mg PO DAILY 12/02/14 [History Confirmed 06/12/18] Phenazopyridine HCl [Pyridium] 200 mg PO TID PRN #20 tab 12/09/14 [Rx Confirmed 06/12/18] Smz/Tmp Ds [Bactrim Ds] 1 tab PO BID #14 tab 12/09/14 [Rx Confirmed 06/12/18] gabapentin 600 mg tablet 600 mg PO BID 06/12/18 [History Confirmed 06/12/18] PFSH Social History Smoking Status: Current some day smoker HPI LEFT SHOULDER PAIN: Details: LEA POWERS JR is a 77 year old M here today for Ortho Exam Left Shoulder Skin/Wound: Yes CDI Contralateral Normal: Yes Testing: Yes AROM-Forward Elevation 0-180, Yes AROM-External Rotation at side 0-60, Yes Neer's, Yes Speed's, Yes TTP Biceps Internal Rotation: T12 Office Procedures Ortho Injections Injections Yes Subacromial Injection Left Details: Obtained consent for injection. Under sterile conditions, injected the patients left subacromial injection with a 10cc cocktail of 8cc bupivacaine and 2cc kenalog. The patient tolerated the injection well without any noted complication. Patient should call our office if redness develops, pain worsens or if they have any concerns. Office Meds Kenalog Performing Provider: Buffy Dial DO Administered by: Buffy Dial DO on 06/12/18 10:01 Dose Route Admin Location Lot Number Expiration DateNDC [employer]er 8 mg Intra-Articularleft [id number] 03/18/19 [id number] [facility] Assessment AND Plan 1. Primary osteoarthritis of left shoulder M19.012 Plan Personally reviewed past office notes and explained that he should continue HEP and we can do another injection today. Follow up in 4 months if needed or sooner if pain, swelling, numbness or associated symptoms, or concerns develop. All questions answered. Patient in agreement of plan. 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 This patient may have a combination of paper and electronic documentation or all paper documentation. All documentation is viewable within the e-chart portion of [employer] for each patient visit. Observed: 04/21/2018 Status: F Source: [place] STREP A (THROAT 10:40 AM [facility] RAPID PRISCILA) REPOSITORY Strep A Rapid RESULT(S) PREVIOUSLY REPORTED ON MANUAL REQUISITION DURING DOWNTIME. Rapid Strep A Screen NEGATIVE A Disk (Conf. Cult) Negative for Strep Group A : All NEGATIVE screens will be confirmed with a culture. Performed By: #### M100.676 #### [facility] [address] [facility] [place], [address] THYROID STIM HORMONE Collected: 04/10/2018 Status: F Source: [place] (TSH) 6:45 AM [facility] REPOSITORY Order Comment: Order Date: 02/10/18 Order Info: [id number] - TSH Order Info: 3024-7 - T4F TYPE CODE TESTS RESULT OUT OF RANGE REFERENCE UNITS LAB L501.9520 0.358-3.74 uIU/mL Normal TSH 2.99 Performed By: #### L501.9520, L506.0400 #### [facility] [address] [place], [address] T4 FREE DIRECT Collected: 04/10/2018 Status: F Source: [place] 6:45 AM [facility] REPOSITORY Order Comment: Order Date: 02/10/18 Order Info: [id number] - TSH Order Info: 3024-7 - T4F TYPE CODE TESTS RESULT OUT OF REFERENCE UNITS RANGE LAB L506.0400 0.76-1.46 ng/dL Low T4 FREE 0.73 DIRECT Performed By: #### L501.9520, L506.0400 #### [facility] [address] [place], [address] PSA,TOTAL- DIAGNOSTIC Collected: 03/20/2018 Status: F Source: [place] 9:58 AM [facility] REPOSITORY TYPE CODE TESTS RESULT OUT OF REFERENCE UNITS RANGE LAB L501.9940 0.0-4.0 ng/mL PSA, High DIAGNOSTIC 4.66 Result Comment: This test was performed using the TPSA assay method for the [employer] chemistry system. Values obtained with different assay methods cannot be used interchangably. When changing PSA assays in the course of monitoring a patient, additional sequential testing should be carried out to confirm baseline values. Performed By: #### L501.9940 #### [facility] [address] [place], [address] CBC W/DIFF, AUTOMATED Collected: 02/08/2018 Status: F Source: [place] 6:00 AM [facility] REPOSITORY TYPE CODE TESTS RESULT OUT OF RANGE REFERENCE UNITS LAB L100.1000 4.4-11.0 K/mm3 Normal WBC 7.3 LAB L100.1200 4.6-6.2 M/mm3 Normal RBC 4.70 LAB L100.1300 13.0-16.5 g/dl Normal HGB 14.7 LAB L100.1400 40-54 % Normal HCT 45.5 LAB L100.1500 80-94 fL High MCV 96.8 LAB L100.1600 27.0-32.0 pg Normal MCH 31.3 LAB L100.1700 32-36 g/gl Normal MCHC 32.3 LAB L100.1810 11.6-14.6 % Normal RDW CV 13.7 LAB L100.1820 35.1-43.9 fl High RDW SD 47.3 LAB L100.1900 150-450 K/mm3 Normal PLT 292 LAB L100.2000 6.2-12.0 fl Normal MPV 9.5 LAB L100.2100 47-70 % Normal NEUT% 60.0 LAB L100.2200 19-41 % Normal LY% 22.0 LAB L100.2300 0-10 % High MONO% 11.6 LAB L100.2400 0-5 % High EO% 5.5 LAB L100.2500 0-1 % Normal BASO% 0.6 LAB L100.2550 0.0-0.9 % Normal IM GRAN % 0.300 Result Comment: IG% - Immature Granulocytes (promyelocytes, myelocytes and metamyelocytes) > 1% indicates that a LEFT SHIFT is Present. LAB L100.2620 2.0-7.7 X10 3/uL Normal Absolute Neut 4.4 LAB L100.2720 0.83-4.51 X10 3/ul Normal Absolute Lymph 1.60 Performed By: #### L100.0100 #### [facility] [address] [place], [address] COMPREHENSIVE METABOLIC Collected: 02/08/2018 Status: F Source: [place]IL 6:00 AM [facility] REPOSITORY Order Comment: Is Patient Taking Vitamins or Folic Acid Supplements? N TYPE CODE TESTS RESULT OUT OF RANGE REFERENCE UNITS LAB L501.0100 74-106 mg/dL Normal GLU 87 Result Comment: Please note revised GLUCOSE reference range effective 2017. LAB L501.1000 7-18 mg/dL High BUN 24 LAB L501.1100 0.70-1.30 mg/dL Normal CREAT,SERUM 1.23 Result Comment: The validity of the calculated GFR AND GFRAA in patients over 70 years has not been determined. Clinical correlation is essential. LAB L501.1110 >60 mL/min Normal EST GFR 60 Result Comment: Non- GFR Calc LAB L501.1115 >60 mL/min Normal EST GFR - AA 73 Result Comment: GFR Calc LAB L501.1300 10-20 RATIO Normal BUN/CRE 19.5 LAB L501.1500 6.4-8.2 g/dL T Normal PROT 7.3 LAB L501.1800 3.2-5.0 g/dL Normal ALB 3.9 LAB L501.1950 2.2-4.2 g/dL Normal GLOB 3.4 LAB L501.2000 0.9-2.4 RATIO Normal A/G 1.1 LAB L501.2200 8.5-10.1 mg/dL CA Normal 9.4 LAB L501.4100 15-37 U/L Normal AST 21 LAB L501.4305 45-117 U/L Normal ALK P 71 LAB L501.4405 16-61 U/L Normal ALT 37 Result Comment: Please note revised ALT reference range effective 2017. LAB L501.4600 0.20-1.00 mg/dL Normal T BILI 0.50 LAB L501.5300 136-145 mmol/L Normal NA 145 LAB L501.5600 3.5-5.1 mmol/L Normal K 4.4 LAB L501.5900 98-107 mmol/L Normal CL 105 LAB L501.6100 21.0-32.0 mmol/L High CO2 33.0 LAB L501.6200 5-15 Normal GAP 7 Performed By: #### L500.4050, L500.4100, L501.9520, L501.9940, L503.6550, L506.0250 #### [facility] [address] [place], [place], [address] LIPID PROFILE Collected: 02/08/2018 Status: F Source: [place] 6:00 AM [facility] REPOSITORY Order Comment: Is Patient Taking Vitamins or Folic Acid Supplements? N TYPE CODE TESTS RESULT OUT OF RANGE REFERENCE UNITS LAB L501.4900 200 mg/dL Normal CHOL 139 Result Comment: <200 mg/dL Desirable 200-240 mg/dL Borderline >240 mg/dL High Risk LAB L501.5000 mg/dL Normal TRIG 91 Result Comment: The drugs N-Acetylcysteine and Metamizole may falsely depress this assay. Serum Triglycerides Reference Interval Normal <150 mg/dL Borderline high 150 - 199 mg/dL High 200 - 499 mg/dL Very High > or = 500 mg/dL LAB L501.6400 mg/dL Normal HDL 52 Result Comment: The drugs N-Acetylcysteine and Metamizole may falsely depress this assay. Reference Range HDL <40 mg/dL Low HDL Cholesterol HDL >or= 60 mg/dL High HDL Cholesterol LAB L501.6500 0-130 mg/dL Normal LDL 69 LAB L501.6600 5-40 mg/dL Normal VLDL 18 Performed By: #### L500.4050, L500.4100, L501.9520, L501.9940, L503.6550, L506.0250 #### [facility] [address] [place], [place], [address] THYROID STIM HORMONE Collected: 02/08/2018 Status: F Source: [place] (TSH) 6:00 AM [facility] REPOSITORY Order Comment: Is Patient Taking Vitamins or Folic Acid Supplements? N TYPE CODE TESTS RESULT OUT OF RANGE REFERENCE UNITS LAB L501.9520 0.358-3.74 uIU/mL High TSH 6.02 Performed By: #### L500.4050, L500.4100, L501.9520, L501.9940, L503.6550, L506.0250 #### [facility] [address] [place], [place], [address] PSA,TOTAL- DIAGNOSTIC Collected: 02/08/2018 Status: F Source: [place] 6:00 AM [facility] REPOSITORY Order Comment: Is Patient Taking Vitamins or Folic Acid Supplements? N TYPE CODE TESTS RESULT OUT OF REFERENCE UNITS RANGE LAB L501.9940 0.0-4.0 ng/mL PSA, High DIAGNOSTIC 4.49 Result Comment: This test was performed using the TPSA assay method for the [employer] chemistry system. Values obtained with different assay methods cannot be used interchangably. When changing PSA assays in the course of monitoring a patient, additional sequential testing should be carried out to confirm baseline values. Performed By: #### L500.4050, L500.4100, L501.9520, L501.9940, L503.6550, L506.0250 #### [facility] [address] [place], [address] FERRITIN Collected: 02/08/2018 Status: F Source: [place] 6:00 AM [facility] REPOSITORY Order Comment: Is Patient Taking Vitamins or Folic Acid Supplements? N TYPE CODE TESTS RESULT OUT OF RANGE REFERENCE UNITS LAB L503.6550 26-388 ng/mL Normal FERRITIN 156 Performed By: #### L500.4050, L500.4100, L501.9520, L501.9940, L503.6550, L506.0250 #### [facility] [address] [place], [address] FOLATES, (FOLIC ACID) Collected: 02/08/2018 Status: F Source: [place] 6:00 AM [facility] REPOSITORY Order Comment: Is Patient Taking Vitamins or Folic Acid Supplements? N TYPE CODE TESTS RESULT OUT OF RANGE REFERENCE UNITS LAB L506.0250 3.1-55.4 ng/mL Normal FOLATES 19.70 Performed By: #### L500.4050, L500.4100, L501.9520, L501.9940, L503.6550, L506.0250 #### [facility] [address] [place], [place], [address] VITAMIN B12 Collected: 02/08/2018 Status: F Source: [place] 6:00 AM [facility] REPOSITORY TYPE CODE TESTS RESULT OUT OF RANGE REFERENCE UNITS LAB L503.0105 211-911 pg/mL Normal Vitamin B12 579 Performed By: #### L503.0105, L506.1000 #### [facility] [address] [place], [address] VITAMIN D,25 HYDROXY Collected: 02/08/2018 Status: F Source: [place] 6:00 AM [facility] REPOSITORY TYPE CODE TESTS RESULT OUT OF RANGE REFERENCE UNITS LAB L506.1000 29.95-100.01 ng/mL Normal Vitamin D 56.7 25-OH Result Comment: Vitamin D 25(OH) Status Range Deficiency <20 ng/mL (50nmol/L) Insuffciency 20 - 30 ng/mL (50 - 75 nmol/L) Sufficiency 30 - 100 ng/mL (75 - 250 nmol/L) Toxicity >100 ng/mL (>250 nmol/L) Performed By: #### L503.0105, L506.1000 #### [place] [facility] [address] [place], [address] ALLERGIES ALLERGIES DATE TYPE / CODE NAME / CODE REACTION SEVERITY SOURCE 10/13/2018 Drug oxycodone Nausea Unknown [place] Allergy/896862366(S HCl/S737565556( [facility] CT) RXNORM) Hospital Repository 10/13/2018 Drug acetaminophen/F Nausea Unknown [place] Allergy/846618470(S [facility]98[facility] 10/13/2018 Drug brimonidine/F00 Swelling Unknown [place] Allergy/311573646(S 9120297(RXNORM) [facility] CT) Hospital Repository 12/02/2014 Miscellaneous [place]AN Swelling Unknown [place] Allergy/416713176(S [facility]) Hospital Repository ENCOUNTERS ENCOUNTERS ADMIT/DISCHARGE ACCOUNT ADMITTING ENCOUNTER LOCATION SOURCE NUMBER CLASS 12/16/2018 [id number] Ambulatory [place] 2 [facility] ing:CT Repository 12/10/2018 [id number] [place] [facility] ing:LAB Repository 11/27/2018 [id number] Ambulatory [place] 5 [facility] Hospital ing:LAB Repository 10/13/2018/ [id number] Ambulatory BMSBuilding:B [place] 8 2 [facility] Hospital Repository 09/24/2018 [id number] [place] 0 [facility] Hospital ing:LABSPEC Repository 08/13/2018 [id number] Ambulatory [place] 7 [facility] Hospital ing:[facility] Repository 06/12/2018/ [id number] Ambulatory BMSBuilding:B [place] 8 2 [facility] Repository 04/21/2018 [id number] Ambulatory [place] 6 [facility] Hospital ing:LABSPEC Repository 04/21/2018/ [id number] Ambulatory BMSBuilding:B [place] 8 1 [place].[facility] Repository 04/10/2018 [id number] Ambulatory [place] 1 [facility] Hospital ing:LAB Repository 03/20/2018 [id number] Ambulatory [place] 0 [facility] Hospital ing:LAB Repository 02/08/2018 [id number] Ambulatory [place] 3 [facility] Hospital ing:LAB Repository PAYERS PAYERS ENCOUNTER GUARANTOR PAYER SUBSCRIBER SOURCE 12/16/2018 JACRISTOFERER C KEVIN Primary JASPER C KEVIN [place] [id number] Insurance:MEDICARE Jr.: [facility] [id number] Number: Repository [address]Awa: [phone] [id number] [phone] () Date:2018-12-12 12/16/2018 Secondary JASPER C KEVIN [place] Insurance:HEALTH PLAN Jr.: [facility] [id number] Number: Repository [id number] [facility] [place] [address]OM: 12/16/2018 Tertiary NOT GIVENUNK [place] Insurance:SELF PAY [facility] Number: Effective Repository Date:2018-12-12 12/10/2018 JASPER C KEVIN Primary JASPER C KEVIN [place] [id number] Insurance:MEDICARE Jr.: [facility] PART A [facility] [id number] Number: Repository [address]Uku: 330 [id number] [phone] () Date:2018-12-10 12/10/2018 Secondary JASPER C KEVIN [place] Insurance:HEALTH PLAN Jr.: [facility] [id number] Number: Repository [id number] Date: [place], [place] [address]IM: 12/10/2018 Tertiary NOT GIVENUNK [place] Insurance:SELF PAY [facility] Number: Effective Repository Date:2018-12-10 11/27/2018 JASPER C KEVNI Primary JASPER C KEVIN [place] [id number] Insurance:MEDICARE JRDOB: [facility] PART A [facility] [id number] Number: Repository [address]Jlq: 330 [id number] [phone] () Date:2018-11-27 11/27/2018 Secondary JASPER C KEVIN [place] Insurance:HEALTH PLAN JRDOB: [facility] [id number] Number: Repository [id number] Date: [place], [place] [address]HT: 11/27/2018 Tertiary NOT GIVENUNK [place] Insurance:SELF PAY [facility] Number: Effective Repository Date:2018-11-27 10/13/2018 JASPER C KEVIN Primary JASPER C KEVIN [place] [id number] Insurance:MEDICARE JRDOB: [facility] PART A [facility] [id number] Number: Repository [address]Bfq: 330 [id number] [phone] () Date:2018-09-30 10/13/2018 Secondary JASPER C KEVIN [place] Insurance:HEALTH PLAN JRDOB: [facility] [id number] Number: Repository [id number] Date: [place], [place] [address]DQ: 10/13/2018 Tertiary NOT GIVENUNK [place] Insurance:SELF PAY [facility] Number: Effective Repository Date:2018-10-13 09/24/2018 JASPER C KEVIN Primary JASPER C KEVIN [place] [id number] Insurance:MEDICARE JRDOB: [facility] PART A [facility] [id number] Number: Repository [address]Neo: 330 [id number] [phone] () Date:2018-09-24 09/24/2018 Secondary JASPER C KEVIN [place] Insurance:HEALTH PLAN JRDOB: [facility] [id number] [facility] Number: Repository [id number] Date: [place], [place] [address]PN: 09/24/2018 Tertiary NOT GIVENUNK [place] Insurance:SELF PAY [facility] Number: Effective Repository Date:2018-09-24 08/13/2018 JASPER C KEVIN Primary JASPER C KEVIN [place] [id number] Insurance:MEDICARE JRDOB: [facility] PART A [facility] [id number] Number: Repository [address]Ste: 330 [id number] [phone] () Date:2018-08-04 08/13/2018 Secondary JASPER C KEVIN [place] Insurance:THP JRDOB: [facility] INSURANCE [id number] Number: Repository [id number] Date: [place], [place] [address]UV: 08/13/2018 Tertiary NOT GIVENUNK [place] Insurance:SELF PAY [facility] Number: Effective Repository Date:2018-08-04 06/12/2018 JASPER C KEVIN Primary JASPER C KEVIN [place] [id number] Insurance:MEDICARE JRDOB: [facility] PART A [facility] [id number], [place] Number: Repository [address]Wyv: 330 [id number] [phone] () Date:2018-05-26 06/12/2018 Secondary JASPER C KEVIN [place] Insurance:THP JRDOB: Community INSURANCE [id number] COMPANYPolicy Number: Repository [id number] Date: [place], [place] [address]HL: 06/12/2018 Tertiary NOT GIVENUNK [place] Insurance:SELF PAY [facility] Number: Effective Repository Date:2018-05-26 04/21/2018 JASPER C KEVIN Primary JASPER C KEVIN [place] [id number] Insurance:MEDICARE JRDOB: [facility] PART A [facility] [id number] Number: Repository [address]Hyf: 330 [id number] [phone] () Date:2018-04-21 04/21/2018 Secondary JASPER C KEVIN [place] Insurance:THP JRDOB: Community INSURANCE [id number] COMPANYPolicy Number: Repository [id number] Date: [place], [place] [address]UQ: 04/21/2018 Tertiary NOT GIVENUNK [place] Insurance:SELF PAY [facility] Number: Effective Repository Date:2018-04-21 04/21/2018 JASPER C KEVIN Primary JASPER C KEVIN [place] [id number] Insurance:MEDICARE JRDOB: [facility] PART A [facility] [id number], [place] Number: Repository [address]Jzx: 330 [id number] [phone] () Date:2018-05-06 04/21/2018 Secondary JASPER C KEVIN [place] Insurance:THP JRDOB: Community INSURANCE [id number] Hospital COMPANYPolicy Number: Repository [id number] Date: [place], [place] [address]DF: 04/21/2018 Tertiary NOT GIVENUNK [place] Insurance:SELF PAY [facility] Number: Effective Repository Date:2018-05-06 04/10/2018 [place] Primary [place] [id number] Insurance:MEDICARE JrDOB: [facility] PART A [facility] [id number], [place] Number: Repository [address]Osx: 330 [id number] [phone] () Date:2018-04-10 04/10/2018 Secondary [place] C Kimball [place] Insurance:THP JrDOB: Community INSURANCE [id number] Hospital COMPANYPolicy Number: Repository [id number] Date: [place], [place] [address]SB: 04/10/2018 Tertiary NOT GIVENUNK [place] Insurance:SELF PAY [facility] Number: Effective Repository Date:2018-04-10 03/20/2018 [place] C Kimball Primary [place] C Kevin [place] [id number] Insurance:MEDICARE JrDOB: [facility] PART A [facility] [id number] Number: Repository [address]Cip: 330 [id number] [phone] () Date:2018-03-20 03/20/2018 Secondary [place] C Kimball [place] Insurance:THP JrDOB: Community INSURANCE [id number] COMPANYPolicy Number: Repository [id number] Date: [place], [place] [address]XO: 03/20/2018 Tertiary NOT GIVENUNK Zen Insurance:SELF PAY [facility] Effective Rep[facility] Date:2018-03-20 02/08/2018 [place] [facility] [place] [id number] Insurance:MEDICARE JrDOB: [facility] BPolicy [id number] Number: Repository [id number]: [phone] [id number] [phone] () Date:2018-02-08 02/08/2018 Secondary [place] Insurance:THP JrDOB: [id number]: Rep[facility] [id number] Date: [place], [place] [address]OK: 02/08/2018 Tertiary NOT GIVENUNK Zen Insurance:SELF PAY [facility]: Effective Repository Date:2018-02-08
== END ==
PROVIDERS: Family Provider Family Medicine; PCP Family Medicine; Referring Provider Family Medicine; Visit Provider Family Medicine
DX: R19.7 Diarrhea, unspecified (principal)
CPT/HCPCS: 36415; 80053; 83690; 86140; 87177; 87209

== ENCOUNTER → 2018-12-16 07:51 | Outpatient (CLI) | payer MEDICARE, OTHER, SELFPAY ==
--- NOTE | 2018-12-16 07:57 | CT_ITS ---
STUDY: CT ABDOMEN AND PELVIS WITHOUT CONTRAST REASON FOR EXAM: Male, 78 years old. Pain and diarrhea RADIATION DOSAGE (If Supplied By Facility): CTDIvol = ( 6.05 ) mGy, DLP = ( 303.73 ) mGycm TECHNIQUE: Transaxial images were obtained from the dome of the diaphragm to the symphysis pubis without oral contrast, and without intravenous contrast. Sagittal and coronal images were reconstructed. Individualized dose optimization techniques were used for this CT. COMPARISON: None. FINDINGS: The study is technically limited, being performed without oral and intravenous contrast. The visualized lung bases are unremarkable. The visualized portions of the heart are within normal limits. There is a small calcified hepatic granuloma. The gallbladder is contracted. Normal spleen. Normal pancreas. Normal bilateral adrenal glands. There are several right renal cysts measuring up to 3.1 cm. There are multiple large left renal cyst measuring up to 5.8 cm. Normal visualized stomach. Normal small intestine. There is colonic diverticulosis most severely affecting the sigmoid. There is no evidence of associated diverticulitis. There is non-visualization of the appendix. There are calcified plaques of the abdominal aorta and common iliac arteries. Normal inferior vena cava. Normal retroperitoneum. Normal urinary bladder. The prostate is enlarged and contains calcifications. There are small bilateral fat-containing inguinal hernias and small fat-containing umbilical hernia. There is mild endplate spondylosis of the visualized thoracolumbar spine. CT/Abdomen/Pelvis without Cont IMPRESSION: 1. Small calcified hepatic granuloma. 2. Bilateral renal cysts. 3. Colonic diverticulosis most severely affecting the sigmoid. There is no evidence of associated diverticulitis. 4. Calcified plaques of the abdominal aorta and common iliac arteries. 5. Small bilateral fat-containing inguinal hernias and small fat-containing umbilical hernia. 6. There is no evidence of free intra-abdominal or intrapelvic air, fluid, or inflammatory process. Electronically Signed: Alonzo Dickerson MD at 17:23 EST , Service support ,
== END ==
PROVIDERS: Family Provider Family Medicine; PCP Family Medicine; Referring Provider Family Medicine; Visit Provider Family Medicine
DX: R10.9 Unspecified abdominal pain (principal)
CPT/HCPCS: 74176

== ENCOUNTER → 2018-12-22 12:36 | Outpatient (CLI) | payer MEDICARE, OTHER, SELFPAY ==
[2018-12-22 13:51] LABS: Erythrocyte Sedimentation Rate 1 mm/hr (0-20)
[2018-12-22 13:52] LABS: Absolute Lymphocyte Count 1.28 X10^3/ul (0.83-4.51); Absolute Neutrophil Count 4.4 X10^3/uL (2.0-7.7); Basophil# 0.03 X10^3/uL; Basophil% 0.5 % (0-1); Eosinophil# 0.16 X10^3/uL; Eosinophils% 2.4 % (0-5); Hematocrit 41.4 % (40-54); Hemoglobin 13.6 g/dl (13.0-16.5); Lymphocyte # 1.28 X10^3/ul (4.0); Lymphocyte % 19.3 % (19-41); Mean Corp Hgb Conc 32.9 g/gl (32-36); Mean Corpuscular Hgb 31.8 pg (27.0-32.0); Mean Corpuscular Volume 96.7 fL (80-94); Mean Platelet Vol. 9.7 fl (6.2-12.0); Monocyte# 0.78 X10^3/uL; Monocyte% 11.8 % (0-10); Neutrophil # 4.35 X10^3/uL (2.7-7.7); Neutrophil % 65.7 % (47-70); Platelet Count 289 K/mm3 (150-450); RBC Distribution Width CV 14.3 % (11.6-14.6); RBC Distribution Width SD 49.4 fl (35.1-43.9); Red Blood Count 4.28 M/mm3 (4.6-6.2); White Blood Count 6.6 K/mm3 (4.4-11.0)
[2018-12-22 13:53] LABS: POSITIVE COUNT NO; POSITIVE DIFFERENTIAL NO; POSITIVE MORPHOLOGY NO
[2018-12-22 14:17] LABS: PTHIN 35.1 pg/mL (18.4-80.1)
[2018-12-22 14:18] LABS: ALB/GLOB Ratio 1.3 RATIO (0.9-2.4); AST(SGOT) 20 U/L (15-37); Alanine Aminotransfer ALT/SGPT 39 U/L (16-61); Alkaline Phosphatase 62 U/L (45-117); Anion Gap 10 (5-15); BUN 26 mg/dL (7-18); BUN/Creat Ratio 21.8 RATIO (10-20); CPK Total, Creatine Kinase 177 U/L (39-308); CRP < 2.90 mg/L (0.0-3.0); Chloride 104 mmol/L (98-107); Creatinine, Serum 1.19 mg/dL (0.70-1.30); EST Glomerular Filtration Rate 63 mL/min (>60); Est Glom Filt Rate - Afr Amer 76 mL/min (>60); Ferritin 83 ng/mL (26-388); Glucose 90 mg/dL (74-106); Magnesium 2.9 mg/dL (1.6-2.6); Potassium 4.6 mmol/L (3.5-5.1); Sodium Level 143 mmol/L (136-145); T4 Free Direct 0.98 ng/dL (0.76-1.46)
[2018-12-24 14:07] LABS: PROELU- Albumin, Urine 32.6 % (.); PROELU- Alpha-1-Globulin,Ur 5.9 % (.); PROELU- Beta Globulin, Ur 25.4 % (.); PROELU- Gamma Globulin, Ur 16.2 % (.)
[2018-12-25 04:09] LABS: Endomysial Antibody IgA Negative (Negative); Immunoglobulin A 92 mg/dL (61-437); Immunoglobulin G 638 mg/dL (700-1600); Immunoglobulin M 61 mg/dL (15-143); PROEL- A/G Ratio 1.5 (0.7-1.7); PROEL- Alpha-1 Globulin 0.2 g/dL (0.0-0.4); PROEL- Alpha-2 Globulin 0.8 g/dL (0.4-1.0); PROEL- Beta Globulin 1.1 g/dL (0.7-1.3); PROEL- Gamma Globulin 0.7 g/dL (0.4-1.8); PROEL- Globulin, Total 2.7 g/dL (2.2-3.9); PROEL- TOTAL PROTEIN 6.7 g/dL (6.0-8.5)
[2018-12-25 07:52] LABS: Immunoglobulin E 7 IU/mL (0-100); t-Transglutaminase IgA <2 U/mL (0-3)
== END ==
PROVIDERS: Family Provider Family Medicine; PCP Family Medicine; Referring Provider Family Medicine; Visit Provider Family Medicine
DX: R53.1 Weakness (principal); D53.1 Other megaloblastic anemias, not elsewhere classified
CPT/HCPCS: 36415; 80053; 82550; 82728; 82784; 82785; 83516; 83735; 83921; 83970; 84165; 84166; 84439; 84443; 85025; 85652; 86038; 86140; 86255

== ENCOUNTER → 2019-03-07 | Outpatient (CLI) | payer MEDICARE, OTHER, SELFPAY ==
[2019-03-07 08:55] LABS: Cholesterol 132 mg/dL (200); High Density Lipoprotein 53 mg/dL; Triglycerides 71 mg/dL; Very Low Density Lipoprotein 14 mg/dL (5-40)
== END | disposition home or self-care (01) ==
LOC: LAB 08:00
PROVIDERS: Family Provider Family Medicine; PCP Family Medicine; Referring Provider Family Medicine; Visit Provider Family Medicine
DX: E78.00 Pure hypercholesterolemia, unspecified (principal)
CPT/HCPCS: 80061

== ENCOUNTER → 2019-04-18 | Outpatient (CLI) | payer MEDICARE, OTHER, SELFPAY ==
[2019-04-21 11:49] LABS: Rubeola IgG Ab > 300.0 AU/mL (Immune >29.9)
== END | disposition home or self-care (01) ==
PROVIDERS: Family Provider Family Medicine; PCP Family Medicine; Referring Provider Family Medicine; Visit Provider Family Medicine
DX: Z01.84 Encounter for antibody response examination (principal)
CPT/HCPCS: 86765

== ENCOUNTER → 2019-06-04 | Outpatient (CLI) | payer MEDICARE, OTHER, SELFPAY ==
--- NOTE | 2019-06-04 10:28 | RAD_ITS ---
STUDY: X-RAY - LEFT SHOULDER REASON FOR EXAM: Chronic pain. TECHNIQUE: 3 view(s) of the shoulder. COMPARISON: Radiographs 07/15/2017. FINDINGS: Normal glenohumeral articulation. Normal acromioclavicular joint. Normal acromion. Normal humeral head and visualized proximal humerus. There is a soft tissue calcification adjacent to the lesser tuberosity consistent with calcific tendinitis as on the prior study. There is a soft tissue calcification adjacent to the proximal humeral diaphysis also consistent with calcific tendinitis and unchanged since prior study. Normal visualized pulmonary apex. 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 Electronically Signed: Alex Fountain MD at 11:23 EDT Tel , Service support ,
--- NOTE | 2019-06-04 10:32 | RAD_ITS ---
STUDY: X-RAY - RIGHT SHOULDER REASON FOR EXAM: Chronic pain. TECHNIQUE: 3 view(s) of the shoulder. COMPARISON: None. FINDINGS: Normal glenohumeral articulation. Normal acromioclavicular joint. Normal acromion. Normal humeral head and visualized proximal humerus. The soft tissue structures are unremarkable. Normal visualized pulmonary apex. RAD/Shoulder min 2 Views IMPRESSION: Normal x-ray examination of the right shoulder. Electronically Signed: Alex Fountain MD at 11:25 EDT Tel , Service support ,
== END | disposition home or self-care (01) ==
LOC: HPRAD 10:25
PROVIDERS: Family Provider Family Medicine; PCP Family Medicine; Referring Provider Orthopaedic Surgery; Visit Provider Orthopaedic Surgery
DX: M19.012 Primary osteoarthritis, left shoulder (principal); M75.42 Impingement syndrome of left shoulder
CPT/HCPCS: 73030

== ENCOUNTER → 2019-06-15 | Outpatient (CLI) | payer MEDICARE, OTHER, SELFPAY ==
--- NOTE | 2019-06-15 10:50 | MRI_ITS ---
STUDY: MRI LEFT SHOULDER REASON FOR EXAM: Posterior pain for 2 years, no specific injury. TECHNIQUE: Standardized fat and water weighted pulse sequences were obtained in all 3 orthogonal planes. COMPARISON: Radiographs 06/04/2019. FINDINGS: There is a full-thickness tear of the supraspinatus tendon (fat suppressed T2 coronal images 6-10) retracted approximately 1.9 cm. Normal infraspinatus tendon. There is subscapularis calcific tendinitis (proton density axial image 13) without discrete tendon tear. Normal teres minor tendon. There is atrophy with partial replacement of the supraspinatus muscle (T2 axial image 7). Normal infraspinatus muscle. Normal subscapularis muscle. Normal teres minor muscle. Normal glenohumeral articulation. There is superior migration of the humeral head secondary to the retracted rotator cuff tear. There is a small cyst in the anterior aspect of the greater tuberosity. Normal biceps labral complex. Normal intracapsular long biceps tendon. Normal labrum. Normal capsulo- ligamentous complex. Normal acromioclavicular articulation. There is a Type II morphology (curved), with a neutral orientation. There is no subacromial-subdeltoid bursal fluid. There is thickening of the coracoacromial ligament (T2 sagittal image 10). Normal deltoid muscle. Normal trapezius muscle. MRI/Upper Ext Joint Only(Routine) IMPRESSION: Full-thickness tear of the supraspinatus tendon. Subscapularis calcific tendinitis. Atrophy of the supraspinatus muscle. Thickening of the coracoacromial ligament. Electronically Signed: Alex Fountain MD at 12:35 EDT Tel , Service support ,
== END | disposition home or self-care (01) ==
PROVIDERS: Family Provider Family Medicine; PCP Family Medicine; Referring Provider Orthopaedic Surgery; Visit Provider Orthopaedic Surgery
DX: M75.102 Unspecified rotator cuff tear or rupture of left shoulder, not specified as traumatic (principal)
CPT/HCPCS: 73221

== ENCOUNTER → 2019-07-16 08:17 | Outpatient (CLI) | payer MEDICARE, OTHER, SELFPAY ==
[2019-07-16 09:43] LABS: ALB/GLOB Ratio 1.2 RATIO (0.9-2.4); AST(SGOT) 16 U/L (15-37); Alanine Aminotransfer ALT/SGPT 43 U/L (16-61); Albumin, Serum 3.7 g/dL (3.2-5.0); Alkaline Phosphatase 55 U/L (45-117); Anion Gap 6 (5-15); BUN 27 mg/dL (7-18); BUN/Creat Ratio 23.3 RATIO (10-20); Calcium,Total 8.7 mg/dL (8.5-10.1); Chloride 106 mmol/L (98-107); Cholesterol 269 mg/dL (200); Creatinine, Serum 1.16 mg/dL (0.70-1.30); EST Glomerular Filtration Rate 64 mL/min (>60); Est Glom Filt Rate - Afr Amer 78 mL/min (>60); Globulin 3.2 g/dL (2.2-4.2); Glucose 97 mg/dL (74-106); High Density Lipoprotein 73 mg/dL; PSA,Total- Diagnostic 2.09 ng/mL (0.0-4.0); Potassium 4.9 mmol/L (3.5-5.1); Protein, Total 6.9 g/dL (6.4-8.2); Sodium Level 143 mmol/L (136-145); Triglycerides 108 mg/dL; Very Low Density Lipoprotein 22 mg/dL (5-40)
== END ==
PROVIDERS: Family Provider Family Medicine; PCP Family Medicine; Referring Provider Family Medicine; Visit Provider Family Medicine
DX: E78.00 Pure hypercholesterolemia, unspecified (principal); G62.9 Polyneuropathy, unspecified; N40.0 Benign prostatic hyperplasia without lower urinary tract symptoms; M25.511 Pain in right shoulder; M25.512 Pain in left shoulder; M25.811 Other specified joint disorders, right shoulder; M25.812 Other specified joint disorders, left shoulder
CPT/HCPCS: 36415; 80053; 80061; 84153; 97110

== ENCOUNTER 2019-09-01 08:30 | Outpatient (RCR) | payer MEDICARE, OTHER, SELFPAY ==
--- NOTE | 2019-07-08 12:19 | HP.PTEVAL ---
Patient's Visit Information ALANNA POWERS is a 78 year old M referred to Physical Therapy by Buffy Dial DO with a diagnosis of B shoulder pain/ B shoulder impingement. 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 L has had MRI and R has enough symptoms that she knows what is going on. She got injections in B shoulders a week ago yesterday. He is feeling much better. He is L handed. 3years now he had been seeing the DR every 4 months...... and it started not to work. R shoulder started about 6 weeks ago and L has always been bad. His symptoms: painful at night without the cortizone. Sometimes during the day the throbbing would start and he would get the ice pack and it would go away. He is sleeping through the night for the last week. - Pain R shoulder pain Pain Intensity (Out of 10): 1 L shoulder pain Pain Intensity (Out of 10): 2 - Objective R shoulder AROM: aprrox 120 degrees flexion, approx 120 degrees abd, ER 35, IR WFL. L shoulder AROM: approx 120 degrees flexion and approx 100 degress abd approx ER 15, IR WFL. Posture: Has rounded shoullders. R shoulder MMT: flexion 4/5, abd 4/5, ER 4-/5 and IR 4-/5. L shoulder MMT:flexion 3+/5, abd 3+/5, ER 3+/5, IR 4-/5. L handed..... 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 Palpation: tender along the posterior aspect of the shoulder. PROM: pt has a hard time relaxing to allow PROM - Goals Goal 1:: I HEP Goal Time Frame: 2-4 Weeks Goal 2:: Increase L shoulder AROM to 120 degrees or greater elevation without pain Goal Time Frame: 2-4 Weeks Goal 3:: Increase L shoulder MMT by 1/2 muscle grade ( at time of eval: R shoulder MMT: flexion 4/5, abd 4/5, ER 4-/5 and IR 4-/5. L shoulder MMT:flexion 3+/5, abd 3+/5, ER 3+/5, IR 4-/5) Goal Time Frame: 4-6 Weeks Goal 4:: Sit with upright posture Goal Time Frame: 4-6 Weeks Goal 5:: Be able to sleep on his L shoulder without pain. Goal Time Frame: 4-6 Weeks - Rehabilitation Potential Rehabilitation Potential: Good - Anticipated Interventions Patient/Client Instruction: Educate patient on: Condition, Plan of Care For the Purpose of:: To decrease pain, To increase ROM, To improve nutrient delivery to tissue, To improve muscle performance and motor function, To improve ability to perform ADL's, To increase tolerance to activity/condition/position, To improve health of tissue, To decrease soft tissue restriction Therapeutic Exercise to Include: Strength training, Postural training, Flexibilty training, Passive ROM, Active ROM, Scapular Strength/Stabilization For the Purpose of:: To decrease pain, To increase ROM, To improve nutrient delivery to tissue, To improve muscle performance and motor function, To improve ability to perform ADL's, To increase tolerance to activity/condition/position, To improve performance and independence with ADL's, To improve health of tissue, To increase flexibility/ROM Manual Therapy Techniques to Include: Passive ROM For the Purpose of:: To increase ROM IF ES: Yes Cryotherapy (ice pack, ice massage): Yes Thermo therapy (hot pack): Yes Ultrasound (thermal/non thermal): Yes For the Purpose of:: To decrease pain, To decrease swelling/inflammation, To improve nutrient delivery to tissue Thank you for the opportunity to evaluate your patient. For Medicare and Medicare HMO plans, please review the plan of care and approve it. It will need to be FAXED BACK to us at [phone] for Medicare purposes. For Medicare only, by signing this I certify the plan of care. Please let me know if there are questions or concerns regarding this plan of care. Physician Signature: Date:
--- NOTE | 2019-09-01 08:56 | HP.PTDCSUM ---
HP - PT D/C Summary It has been my pleasure to treat ALANNA POWERS under orders from Buffy Dial DO, for the diagnosis of B shoulder pain/ B shoulder impingement for a total of 13 visit(s). Discharge Date: 09/01/19 Please see the following information for a summary of their discharge status. - Subjective Subjective: Pt reports that he is still not feeling great due to IBS. He has some degree more pain the last couple of weeks and has used ice a couple of nights. - Pain R shoulder pain Pain Intensity (Out of 10): 0 L shoulder pain Pain Intensity (Out of 10): 3 - Overall Improvement % Improvement: 35 - Objective Objective/Function: L shoulder flexion 140 degrees. L shld MMT: flex, abd, ER and IR 4-/5. Sits with good posture. Able to lay on L side for short periods of time - Goals Goal 1:: I HEP Goal Progress: Goal Met Goal 2:: Increase L shoulder AROM to 120 degrees or greater elevation without pain Goal Progress: Goal Met Goal 3:: Increase L shoulder MMT by 1/2 muscle grade ( at time of eval: R shoulder MMT: flexion 4/5, abd 4/5, ER 4-/5 and IR 4-/5. L shoulder MMT:flexion 3+/5, abd 3+/5, ER 3+/5, IR 4-/5) Goal Progress: Progressing Goal 4:: Sit with upright posture Goal Progress: Goal Met Goal 5:: Be able to sleep on his L shoulder without pain. Goal Progress: Goal Met - Plan Plan: DC PT to HEP. Pt may want to come back after his vacation/ eye surgery if he is no better just doing his HEP. He understands his HEP and the fact that he has to call his Dr for a new order if he wants to return to PT. - D/C Information Discharge Comments: DC PT to HEP If there are questions or concerns regarding this patient's physical therapy, please feel free to call me at [phone]. Thank you for the referral of this patient. Sincerely, Julia Taveras, MPT
== END 2019-09-01 19:00 | disposition home or self-care (01) ==
LOC: PT 08:30
PROVIDERS: Family Provider Family Medicine; PCP Family Medicine; Referring Provider Orthopaedic Surgery; Visit Provider Orthopaedic Surgery
DX: M25.512 Pain in left shoulder (principal); M25.511 Pain in right shoulder; M25.812 Other specified joint disorders, left shoulder; M25.811 Other specified joint disorders, right shoulder
CPT/HCPCS: 97110; 97161

== ENCOUNTER → 2019-10-26 12:21 | Outpatient (CLI) | payer MEDICARE, OTHER, SELFPAY | PROVIDERS: Family Provider Family Medicine; PCP Family Medicine; Visit Provider Family Medicine | DX: J22 Unspecified acute lower respiratory infection (principal) | CPT/HCPCS: 87070; 87077; 87205 ==

== ENCOUNTER → 2019-10-29 08:31 | Outpatient (CLI) | payer MEDICARE, OTHER, SELFPAY ==
[2019-10-29 09:58] LABS: Absolute Lymphocyte Count 1.29 X10^3/uL (0.83-4.51); Absolute Neutrophil Count 6.2 X10^3/uL (2.0-7.7); Basophil# 0.04 X10^3/uL; Basophil% 0.5 % (0-1); Eosinophil# 0.11 X10^3/uL; Eosinophils% 1.3 % (0-5); Hematocrit 42.8 % (40-54); Hemoglobin 13.5 g/dL (13.0-16.5); Lymphocyte # 1.29 X10^3/ul (4.0); Lymphocyte % 15.1 % (19-41); Mean Corp Hgb Conc 31.5 g/dL (32-36); Mean Corpuscular Hgb 31.9 pg (27.0-32.0); Mean Corpuscular Volume 101.2 fL (80-94); Mean Platelet Vol. 9.3 fl (6.2-12.0); Monocyte# 0.86 X10^3/uL; NRBC Flagged by Analyzer 0 % (0-5); Neutrophil # 6.18 X10^3/uL (2.7-7.7); Platelet Count 323 K/mm3 (150-450); RBC Distribution Width CV 12.5 % (11.6-14.6); RBC Distribution Width SD 46.7 fl (35.1-43.9); Red Blood Count 4.23 M/mm3 (4.6-6.2); White Blood Count 8.6 K/mm3 (4.4-11.0)
[2019-10-29 10:33] LABS: ALB/GLOB Ratio 1.3 RATIO (0.9-2.4); AST(SGOT) 16 U/L (15-37); Alanine Aminotransfer ALT/SGPT 32 U/L (16-61); Alkaline Phosphatase 74 U/L (45-117); Amylase 67 U/L (25-115); Anion Gap 3 (5-15); BUN 22 mg/dL (7-18); BUN/Creat Ratio 20.2 RATIO (10-20); Chloride 106 mmol/L (98-107); Creatinine, Serum 1.09 mg/dL (0.70-1.30); EST Glomerular Filtration Rate 69 mL/min (>60); Est Glom Filt Rate - Afr Amer 84 mL/min (>60); Globulin 3.1 g/dL (2.2-4.2); Glucose 96 mg/dL (74-106); Lipase 146 U/L (73-393); Protein, Total 7.1 g/dL (6.4-8.2); Sodium Level 140 mmol/L (136-145)
[2019-10-29 14:00] LABS: Cholesterol 154 mg/dL (200); High Density Lipoprotein 63 mg/dL; Triglycerides 90 mg/dL; Very Low Density Lipoprotein 18 mg/dL (5-40)
[2019-10-30 17:03] LABS: Fats, Neutral Normal (.)
[2019-10-30 17:04] LABS: Carbohydrate Ag 19-9 2261 15 U/mL (0-35)
[2019-10-30 17:04] LABS: Fats, Total Normal (.)
[2019-11-02 16:04] LABS: 5-HIAA, 24UR 2.4 mg/24 hr (0.0-14.9); 5-HIAA, UR 1.7 mg/L (Undefined)
== END ==
PROVIDERS: Family Provider Family Medicine; PCP Family Medicine; Referring Provider Family Medicine; Visit Provider Family Medicine
DX: E78.00 Pure hypercholesterolemia, unspecified (principal); R19.7 Diarrhea, unspecified
CPT/HCPCS: 36415; 80053; 80061; 81050; 82150; 82705; 83497; 83690; 85025; 86301

== ENCOUNTER → 2019-11-04 09:44 | Outpatient (CLI) | payer MEDICARE, OTHER, SELFPAY ==
--- NOTE | 2019-11-04 09:49 | CT_ITS ---
STUDY: CT BRAIN WITHOUT CONTRAST REASON FOR EXAM: Male, 79 years old. Patient fell one month ago. RADIATION DOSAGE (If Supplied By Facility): CTDIvol = ( 44.99 ) mGy, DLP = ( 796.11 ) mGycm TECHNIQUE: Transaxial CT imaging of the brain was performed without administration of intravenous contrast material. Individualized dose optimization techniques were used for this CT. COMPARISON: No relevant priors. FINDINGS: Normal soft tissue structures. Normal calvarium. There is mild cerebral atrophy with widening of the extra-axial spaces and ventricular dilatation. There are areas of decreased attenuation within the white matter tracts of the supratentorial brain, consistent with microvascular disease changes. Normal basal ganglia and thalami. Normal brainstem. Normal cerebellum. There is no intracranial hemorrhage. There are no findings of an acute ischemic infarction. Atherosclerotic calcification of the cavernous portions of the internal carotid arteries bilaterally. Normal visualized paranasal sinuses. CT/Brain/Head without Contrast IMPRESSION: Chronic involutional changes of the brain. Electronically Signed: Rajeev Torres, at 10:59 EST , Service support ,
--- NOTE | 2019-11-04 09:51 | US_ITS ---
STUDY: ABDOMINAL ULTRASOUND REASON FOR EXAM: Male, 79 years old. Fatigue and diarrhea TECHNIQUE: Transabdominal ultrasound was performed with real-time and static hinton scale imaging. TECHNICAL QUALITY: Adequate. COMPARISON: None. FINDINGS: Liver: The liver measures 15.4 cm. There is a heterogeneous echogenicity of the liver. The bile ducts are within normal limits. There is hepatic color flow. The direction of portal flow is hepatopetal. There is no demonstrated mass lesion. Gallbladder: Normal distended gallbladder. The gallbladder wall measures 3 mm. There is a negative sonographic Toro''s sign. There is no pericholecystic fluid. There are no gallstones. Common Bile Duct (C.B.D.): The common bile duct measures 4 mm. Pancreas: Normal size of the head, body and tail of the pancreas. There is normal echogenicity of the pancreas. There is no demonstrated pancreatic mass or cyst. Spleen: Normal size of the spleen. The spleen measures 10.0 x 4.4 x 3.7 cm. Right Kidney: Normal size of the right kidney. The right kidney measures 12.3 x 4.4 x 4.4 cm. Normal renal cortex. The right cortex measures 1.3 cm. There are 2 right renal cysts measuring 1.5 x 1.3 x 1.5 cm and 2.8 x 3.0 x 3.4 cm. There is no right hydronephrosis. Left Kidney: Normal size of the left kidney. The left kidney measures 12.8 x 6.2 x 5.3 cm. Normal renal cortex. The left cortex measures 1.3 cm. There are 2 left renal cysts measuring 6.1 x 5.6 x 5.7 cm and 4.5 x 5.1 x 5.2 cm. There is a mild left hydronephrosis and proximal left hydroureter. Aorta: The abdominal aorta is normal in caliber and contour, and measures 2.1 x 1.8 cm proximally, 1.5 x 1.8 cm in the mid abdominal region, and 1.2 x 1.4 cm distally. I.V.C.: The IVC is patent. There is no ascites. US/Abdomen Complete IMPRESSION: 1. The liver is heterogeneous in echogenicity. 2. Bilateral renal cysts. Mild left hydronephrosis/proximal hydroureter. Electronically Signed: Alonzo Dickerson MD at 22:04 EST , Service support ,
== END ==
PROVIDERS: Family Provider Family Medicine; PCP Family Medicine; Referring Provider Family Medicine; Visit Provider Family Medicine
DX: S06.9X9A Unspecified intracranial injury with loss of consciousness of unspecified duration, initial encounter (principal); R19.7 Diarrhea, unspecified
CPT/HCPCS: 70450; 76700